=== PATIENT | male | born 1960 | race African-American/Black ===

== ENCOUNTER 2019-12-04 13:03 | Emergency (ER) | payer MEDICAID ==
[~2019-12-04] VITALS: Ht 182.9 cm; Wt 80.9 kg
[2019-12-04] MEDS ORDERED: PERMETHRIN 1% 60 ML LOTION TP ONE (14:00)
[2019-12-04 15:18] VITALS: BP 145/83
== END 2019-12-04 15:38 | disposition home or self-care (01) ==
LOC: EMS 13:12
DX: B85.2 Pediculosis, unspecified (principal); I10 Essential (primary) hypertension; F12.90 Cannabis use, unspecified, uncomplicated; Z59.0 Homelessness